=== PATIENT | female | born 1975 | race Caucasian/White ===

== ENCOUNTER → 2018-03-16 | Outpatient (REF) | payer OTHER ==
[~2018-03-16] MED LIST: ACE3 PO; CHOL500045 PO; IBU800 PO; IBUP800T37 PO; INSU100C14 SC; LEV112 PO; LEV125 PO; LEVO-3 PO; MINO100T8 PO; NORG1TAB76 PO; OVCON PO; OXYC-373 PO; PER PO; ROPI1TAB36 PO; SUBC1EAC MC; SULF-198 PO; VENL150C61 PO; [UNRECOGNIZED DRUG - CODE] MC
== END ==
LOC: ZZSENDIN 16:46
PROVIDERS: ATTEND Physician Assistant
DX: R10.11 Right upper quadrant pain (principal)
CPT/HCPCS: 83690

== ENCOUNTER → 2018-03-21 | Outpatient (CLI) | payer OTHER ==
--- NOTE | 2018-03-21 08:52 | RADIOLOGY IMAGING REPORT ---
FACILITY: [facility] PATIENT NAME: Jane Garcia : 1975 MR: [id number] V: [id number] EXAM DATE: ORDERING PHYSICIAN: MAME WATTS TECHNOLOGIST: Location: [facility] [place] Patient: Jane Garcia : 1975 Visit/Account:[id number] Date of Sevice: 03/21/2018 EXAMINATION: Ultrasound abdomen right upper quadrant HISTORY: Right upper quadrant pain. Nausea and vomiting. COMPARISON: None. FINDINGS: Gallbladder: No stones, wall thickening, pericholecystic fluid or sonographic Reynolds sign. The gallbl adder wall thickness is normal at 2 mm. Liver: The echogenicity is normal with homogenous echotexture. Normal hepatopetal flow is present. T he liver length is 13.3 cm. Common bile duct: No significant intrahepatic or extrahepatic biliary ductal dilatation is present. T he common bile duct is normal at 3 mm. Pancreas: Normal where visualized. Right kidney: Normal in size and echogenicity, measuring 10.2 cm in length. No hydronephrosis. Upper abdominal aorta and IVC: Patent. Ascites: None. IMPRESSION: 1. No cholelithiasis or sonographic evidence of acute cholecystitis. Report Dictated By: Lauren Vincent MD at 03/21/2018 8:45 AM Report E-Signed By: Lauren Vincent MD at 03/21/2018 8:48 AM WSN:DEION
== END ==
LOC: US 07:40
PROVIDERS: ATTEND Physician Assistant
DX: R10.11 Right upper quadrant pain (principal)
CPT/HCPCS: 76705

== ENCOUNTER → 2018-06-01 | Outpatient (CLI) | payer OTHER ==
[~2018-06-01] MED LIST changes: +EMPA10TA; +LEVO150T78 PO; +SERT-181 PO
[2018-06-01 10:02] LABS: PLATELET COUNT, AUTOMATED 233 K/uL (150-450)
== END ==
LOC: LAB 09:39
PROVIDERS: ATTEND Surgery
DX: R10.9 Unspecified abdominal pain (principal); E11.9 Type 2 diabetes mellitus without complications; R63.4 Abnormal weight loss
CPT/HCPCS: 36415; 82040; 82247; 82310; 82374; 82435; 82565; 82947; 83036; 83690; 84075; 84132; 84155; 84295; 84450; 84460; 84520; 85025

== ENCOUNTER → 2018-06-05 | Outpatient (CLI) | payer OTHER ==
--- NOTE | 2018-06-05 12:16 | RADIOLOGY IMAGING REPORT ---
FACILITY: [facility] PATIENT NAME: BRYAN MARINO : [id number] MR: [id number] V: [id number] EXAM DATE: ORDERING PHYSICIAN: RODRIGO DORADO TECHNOLOGIST: Anel Rich PROCEDURE:BILATERAL DIGITAL SCREENING MAMMOGRAM WITH CAD ASSISTED INTERPRETATION & 3D TOMOSYNTHESIS COMPARISON:Prior mammograms 05/31/17, 06/08/16, 12/28/12. INDICATIONS:SCREENING FINDINGS: The breasts are heterogeneously dense which can obscure small masses. The parenchymal pattern has remained stable allowing for difference in mammographic technique & patient positioning. DIAGNOSTIC CATEGORY 1--NEGATIVE. RECOMMENDATIONS: ROUTINE MAMMOGRAM AND CLINICAL EVALUATION. IMPRESSION: BIRADS 1: Negative. No significant abnormality is seen. Dictated by: Ame Kulkarni M.D. on 06/05/2018 at 9:20 Transcribed by: BRET on 06/05/2018 at 10:50 Approved by: Ame Kulkarni M.D. on 06/05/2018 at 12:15 [facility]
== END ==
LOC: MAMO 00:45
PROVIDERS: ATTEND Obstetrics & Gynecology
DX: Z12.31 Encounter for screening mammogram for malignant neoplasm of breast (principal); Z80.3 Family history of malignant neoplasm of breast
CPT/HCPCS: 77063; 77067